=== PATIENT | female | born 1965 | race Caucasian/White ===

== ENCOUNTER 2023-10-05 21:55 | Emergency (ER) | payer MEDICARE, OTHER, SELFPAY ==
[2023-10-05 21:58] VITALS: BP 131/80
[2023-10-05 22:18] LABS: % Basophils 0.7 % (0-2); % Eosinophils 4.5 % (0-6); % Immature Granulocytes 0.8 % (0-0.5); % Lymphocytes 25.3 % (20.5-51.1); % Monocytes 10.9 % (1.7-9.3); % Neutrophils 57.8 % (42.2-75.2); Absolute Basophils 0.1 10^3/uL (0-0.2); Absolute Eosinophils 0.5 10^3/uL (0-0.7); Absolute Immature Granulocytes 0.1 10^3/uL (0-0.05); Absolute Monocytes 1.3 10^3/uL (0.1-0.6); Absolute Neutrophils 6.9 10^3/uL (1.4-6.5); Hematocrit 39.4 % (37.0-47.0); Hemoglobin 13.5 g/dL (12.0-16.0); Mean Corp Hgb Conc. 34.3 g/dL (33.0-37.0); Mean Corpuscular Hgb 32.3 pg (27.0-31.0); Mean Corpuscular Volume 94.3 fL (81.0-99.0); Mean Platelet Volume 11.5 fL (7.4-10.4); Nucleated Red Blood Cells % 0 %; Platelet Count 279 10^3/uL (130-400); Red Blood Cell Count 4.18 10^6/uL (4.20-5.40); Red Cell Dist. Width 13.6 % (11.5-14.5); Urine Albumin Trace (Neg - Trace); Urine Bilirubin Negative (Negative); Urine Character Slightly Cloudy (Clear); Urine Color Yellow; Urine Glucose Negative (Negative); Urine Ketone Trace (Negative); Urine Leukocyte Trace (Negative); Urine Nitrite Negative (Negative); Urine Occult Blood Negative (Negative); Urine Specific Gravity 1.025 (<1.030); Urine Urobilinogen 1+ (Neg - 1+)
[2023-10-05 22:28] LABS: Urine Calcium Oxalate Crystals Present; Urine Mucus Few
[2023-10-05 22:29] LABS: Urine Bacteria Moderate (Negative); Urine Red Blood Cell 0-2 /HPF (0-2); Urine White Cell 0-2 /HPF (0-5)
[2023-10-05 22:37] LABS: ALT (SGPT) 16 U/L (0-35); AST (SGOT) 15 U/L (14-36); Alkaline Phosphatase 81 U/L (38-126); Blood Urea Nitrogen 25 mg/dl (7-17); Calcium 9.4 mg/dl (8.4-10.2); Carbon Dioxide 24 mmol/L (22-30); Chloride 110 mmol/L (98-107); Glucose 115 mg/dl (70-99); Lipase 74 U/L (23-300); Potassium 3.8 mmol/L (3.5-5.1); Sodium 137 mmol/L (135-145); Total Bilirubin 0.3 mg/dl (0.2-1.3); Total Protein 6.4 g/dl (6.3-8.2); eGFR > 60.00
--- NOTE | 2023-10-06 01:51 | ED.GENMED ---
History of Present Illness
<GIOVANA Hung - Last Filed: 10/06/23 05:42>
General
Chief Complaint: Abdominal Pain
Source: patient and family
Exam Limitations: none
Time Seen by Provider: 10/06/23 01:37
Nursing documentation reviewed up to this point in time: agreed with
Travel History
Have you had any contact with someone who has COVID-19?: No
Do you have any symptoms of coronavirus? Fever > 100 degrees, chills, cough, shortness of breath, sore throat, loss of taste or smell, muscle aches, or headache?: No
History of Present Illness
History of Present Illness:
Pt is a 57 year old female with a PMH of intestinal angioedema and CVA, presenting to the ED with her father c/o abdominal pain x 1.5 hours. Pt states she has had multiple episodes of angioedema in the past and they have all felt similar to this.
She states the pain is 8/10 and is a sharp constant pain. Pt also has associated nausea and diarrhea. She has had 4 episodes of non bloody diarrhea, which usually does not accompany her flares of the angioedema. She denies any fever, chills,
vomiting, CP, SOB, dysuria, lightheadedness or dizziness. Pt states she normally gets benadryl and other medications for her flares which usually causes her symptoms to resolve. Pt does not want a CAT scan today because she has had so many in the
past and her 'doctor is worried about the effect's on her organs.'
Pt does not drink alcohol or use drugs. She smokes 1/2 PPD of cigarretes.
Past History
<GIOVANA Hung - Last Filed: 10/06/23 05:42>
Past History
ED Past Medical History: CVA, Psychiatric (Bipolar) and Other (Chronic abdominal pain - intestinal angioedema)
ED Past Surgical History: Appendectomy
Patient has exhibited threatening behavior?: No
Social History
Tobacco: Smoker
Alcohol: None
Drug: None
Personal: Single
Living: with family
Employment: Not employed
Family History
Family History: Negative Hypertension or Early CAD
Review of Systems
<GIOVANA Hung - Last Filed: 10/06/23 05:42>
Review of Systems
Other source history: family
Constitutional: Reports no symptoms; Denies fever or chills
Respiratory: Reports no symptoms; Denies trouble breathing
Cardiac: Reports no symptoms; Denies chest pain
ABD/GI: Reports abdominal pain, nausea and diarrhea; Denies vomiting or constipated
: Reports no symptoms; Denies dysuria
Skin: Reports no symptoms
Neurological: Reports no symptoms; Denies dizzy
Phy Exam
<GIOVANA Hung - Last Filed: 10/06/23 05:42>
General Physical Exam
General Presentation: moderate distress
General age: appears older than age
General Skin: warm and dry
General Habitus: normal
General Mental: alert
General Hydration: appears well hydrated
Cardiovascular Exam
Cardiovascular Exam: regular rate/rhythm, no edema and no murmur
Heart Sounds: normal
Pulmonary Exam
Pulmonary Exam: lungs clear, no respiratory distress, no rales, no crackles, no wheezing and no cough
Oxygen Status: room air
Cough: no cough
Gastrointestinal Exam
Gastrointestinal Exam: soft, abnormal bowel sounds (hyperactive) and tender (left sided)
Palpation: left upper quadrant: Moderate tenderness and left lower quadrant: Moderate tenderness
Auscultation of Abdomen: hyperactive
Neurological Exam
Neurological Exam: alert and oriented x3
Musculoskeletal Exam
Musculoskeletal Exam: no edema and neuro vasc intact
Skin Exam
Skin Exam: normal color and warm/dry
Psychiatric Exam
Psychiatric Exam: normal mood/affect
Course
<GIOVANA Hung - Last Filed: 10/06/23 05:42>
Orders/Labs/Results
Orders:
Orders
10/05/23 22:11
Complete Blood Count/With Diff Urgent
Comprehensive Metabolic Panel Urgent
Lipase Urgent
Urine Culture Reflexed from UA [Urinalysis Reflex To Culture] Urgent
Date Specimen was Collected: 10/05/23
Time Specimen was Collected: 22:03
Urine Microscopic Reflex Cult Urgent
Urine Culture Urgent
SANTIAGO Source: U
Specimen Description:
Date Specimen was Collected: 10/05/23
Time Specimen was Collected: 22:03
10/06/23 02:21
0.9% Sodium Chloride 1000 ml [Nss] 1,000 ml IV BOLUS
Diphenhydramine [Benadryl] 25 mg IV NOW STA
Famotidine [Pepcid] 20 mg IV NOW STA
HYDROmorphone [Dilaudid] 0.5 mg IV NOW STA
Metoclopramide [Reglan] 10 mg IV NOW STA
Abnormal Lab Results
10/05/23
22:11
WBC 12.0 H 10^3/uL
(4.8-10.8)
RBC 4.18 L 10^6/uL
(4.20-5.40)
MCH 32.3 H pg
(27.0-31.0)
MPV 11.5 H fL
(7.4-10.4)
Abs Immat Gran (auto) 0.1 H 10^3/uL
(0-0.05)
Absolute Neuts (auto) 6.9 H 10^3/uL
(1.4-6.5)
Absolute Monos (auto) 1.3 H 10^3/uL
(0.1-0.6)
Immature Gran % 0.8 H %
(0-0.5)
Monocytes % 10.9 H %
(1.7-9.3)
Chloride 110 H mmol/L
(98-107)
BUN 25 H mg/dl
(7-17)
Glucose 115 H mg/dl
(70-99)
Urine Ketones Trace A
(Negative)
Leukocyte Esterase Rfl Trace A
(Negative)
Urine Bacteria (Reflex) Moderate A
(Negative)
10/05/23 22:11
10/05/23 22:11
Vital Signs
Initial and Last Documented VS:
Initial Vital Signs
Temp Pulse Resp BP Pulse Ox
98.9 F 86 20 131/80 97
10/05/23 21:58 10/05/23 21:58 10/05/23 21:58 10/05/23 21:58 10/05/23 21:58
Last Documented Vital Signs
Temp Pulse Resp BP Pulse Ox
98.9 F 76 18 118/76 96
10/05/23 21:58 10/06/23 05:02 10/06/23 05:02 10/06/23 05:02 10/06/23 05:02
<Wilma Ramirez, DO - Last Filed: 10/06/23 05:12>
Orders/Labs/Results
Orders:
Orders
10/05/23 22:11
Complete Blood Count/With Diff Urgent
Comprehensive Metabolic Panel Urgent
Lipase Urgent
Urine Culture Reflexed from UA [Urinalysis Reflex To Culture] Urgent
Date Specimen was Collected: 10/05/23
Time Specimen was Collected: 22:03
Urine Microscopic Reflex Cult Urgent
Urine Culture Urgent
SANTIAGO Source: U
Specimen Description:
Date Specimen was Collected: 10/05/23
Time Specimen was Collected: 22:03
10/06/23 02:21
0.9% Sodium Chloride 1000 ml [Nss] 1,000 ml IV BOLUS
Diphenhydramine [Benadryl] 25 mg IV NOW STA
Famotidine [Pepcid] 20 mg IV NOW STA
HYDROmorphone [Dilaudid] 0.5 mg IV NOW STA
Metoclopramide [Reglan] 10 mg IV NOW STA
Abnormal Lab Results
10/05/23
22:11
WBC 12.0 H 10^3/uL
(4.8-10.8)
RBC 4.18 L 10^6/uL
(4.20-5.40)
MCH 32.3 H pg
(27.0-31.0)
MPV 11.5 H fL
(7.4-10.4)
Abs Immat Gran (auto) 0.1 H 10^3/uL
(0-0.05)
Absolute Neuts (auto) 6.9 H 10^3/uL
(1.4-6.5)
Absolute Monos (auto) 1.3 H 10^3/uL
(0.1-0.6)
Immature Gran % 0.8 H %
(0-0.5)
Monocytes % 10.9 H %
(1.7-9.3)
Chloride 110 H mmol/L
(98-107)
BUN 25 H mg/dl
(7-17)
Glucose 115 H mg/dl
(70-99)
Urine Ketones Trace A
(Negative)
Leukocyte Esterase Rfl Trace A
(Negative)
Urine Bacteria (Reflex) Moderate A
(Negative)
10/05/23 22:11
10/05/23 22:11
Vital Signs
Initial and Last Documented VS:
Initial Vital Signs
Temp Pulse Resp BP Pulse Ox
98.9 F 86 20 131/80 97
10/05/23 21:58 10/05/23 21:58 10/05/23 21:58 10/05/23 21:58 10/05/23 21:58
Last Documented Vital Signs
Temp Pulse Resp BP Pulse Ox
98.9 F 76 18 118/76 96
10/05/23 21:58 10/06/23 05:02 10/06/23 05:02 10/06/23 05:02 10/06/23 05:02
<Wilma Ramirez DO - Last Filed: 10/06/23 05:12>
*Pulse Oximetry
Patient hypoxic: no
*Critical Care Note
Total Time (30-74mins, 75-104mins- exclusive of procedures): Not Applicable
ED Attending Note
<GIOVANA Hung - Last Filed: 10/06/23 05:42>
-
Portions of this chart may have been created with voice recognition software.� Occasional wrong word or��sound alike� substitutions may have occurred due to the inherent limitations of voice recognition software.
<Wilma Ramirez DO - Last Filed: 10/06/23 05:12>
ED Attending Note
Patient seen and examined by attending physician: Yes
I performed the substantive portion of visit, reviewed & personally made and approve the management plan that is documented in note by myself or MICHAEL.: Yes
I performed a history and physical exam of patient and discussed management with resident, I reviewed resident's note and agree with documented findings and plan of care.: Yes
ED Attending Note:
This is a 57-year-old woman who has history of factor V Leyden deficiency, history of stroke, chronically maintained on Eliquis. She also has history of intestinal angioedema with intermittent episodes of primarily left-sided abdominal pain
accompanied with nausea, vomiting, generally resolves with IV Reglan, Benadryl, Pepcid and Dilaudid. She follows with GI at [facility] and has had multiple ED visits over a number of years for similar complaints.
She does note marked decreased episodes of intestinal angioedema since suffering stroke 4 years ago.
Her last episodes with similar complaints she was evaluated in this ED May 2022 and then again in January 2023.
In May [address] which showed mild descending colon inflammation consistent with colitis and treated with short course of antibiotic. Previous CAT scans at [facility] were all unremarkable.
Patient complains of her typical left-sided abdominal pain that began this evening accompanied with nausea, dry heaves and 4 episodes of nonbloody diarrhea. She does admit that diarrhea is generally not accompanied with her angioedema flares.
She has not had a fever nor chills. No close contacts with similar symptoms. No recent travel nor recent antibiotic use.
She is chronically maintained on Benadryl 25 mg daily as well as Zyrtec daily which have been helpful in reducing her intestinal angioedema flares.
GENERAL: 57-year-old woman appears somewhat older than stated age, bright and alert, pleasant, appears in no acute distress. Her father is accompanying.
EYE: pupils equal and reactive. anicteric
NECK: Supple, nontender, no meningismus, no significant adenopathy.
ENT: posterior pharynx is clear, oral mucosa is moist. No rhinorrhea.
CARDIAC: Regular rate and rhythm. no murmur.
LUNGS: Clear breath sounds bilaterally, no acute respiratory distress, no wheezes/rales/rhonchi
ABDOMEN: Soft, nondistended, mild to moderate tenderness left lower quadrant, no r/g, no cvat. normoactive BS.
NEUROLOGICAL: Alert and oriented x3, no focal neuro deficits. Gait is steady.
SKIN: Warm and dry, normal color, skin intact. No rash.
MUSCULOSKELETAL: No C/C/E. peripheral pulses are full and equal b/l. No palpable tenderness.
PSYCH: Normal and appropriate interaction.
Concern for recurrent intestinal angioedema, other consideration is acute gastroenteritis, colitis, diverticulitis. Less likely small bowel obstruction.
Thus far labs reveal mildly elevated white blood cell count of 12. Similar elevations noted in the past.
Mild prerenal azotemia with BUN of 25, creatinine 0.9. Chemistries are otherwise unremarkable.
Urinalysis shows specific gravity of 1.025, moderate bacteria but no evidence of UTI with only 0-2 WBCs. Calcium oxalate crystals are present but patient has had no flank pain, no CVA tenderness. Ureteric stone as cause for pain is less likely.
Will trial her usual cocktail of Reglan, Pepcid, Benadryl and a small dose of IV Dilaudid along with IV fluids and continue to observe.
If recurrent diarrhea we will plan to send stool cultures.
If pain persists would recommend CT at that time.
10/06/2023 0511 AM
Patient is pain-free and comfortable and eager to be discharged to home.
Abdomen is soft and nontender.
No diarrhea since arrival to the ED.
Recommend she follow-up with her electro optics engineer at [facility]. Patient requested referral to [facility] which has been provided as well.
Discharge Plan
Departure
Patient Disposition: Home (Routine Discharge)
Date of Disposition: 10/06/23
Time of Disposition: 05:08
Patient with high blood pressure during this ER visit?: No
Condition: Good
Discharge Problem:
Acute exac of intestinal angioedema
Instructions: Clear Liquid Diet, Abdominal Pain
Prescriptions:
No Action
cetirizine 10 MG tablet
10 mg PO DAILY
epinephrine [EpiPen] 0.3 MG/0.3/SYRINGE auto-injector
0.3 mg IM PRN PRN (Reason: intestinal pain)
lurasidone [Latuda] 80 MG tablet
80 mg PO DAILY
famotidine 20 MG tablet
20 mg PO BID
diphenhydramine HCl [Banophen] 25 MG capsule
25 mg PO BID
lamotrigine [Lamictal] 150 MG tablet
225 mg PO HS
alprazolam 1 MG tablet
1 - 3 mg PO Q8HPRN PRN (Reason: anxiety)
apixaban [Eliquis] 5 MG tablet
2.5 mg PO BID Qty: 0 0RF
clopidogrel [Plavix] 75 MG tablet
75 mg PO DAILY Qty: 7 0RF
atorvastatin 40 MG tablet
40 mg PO QPM Qty: 30 0RF
famotidine 20 MG tablet
20 mg PO BID Qty: 14 0RF
metoclopramide HCl 10 MG tablet
10 mg PO BID PRN (Reason: nausea) Qty: 12 0RF
amoxicillin-pot clavulanate 875-125 mg tablet
1 tab PO BID 7 Days Qty: 14 0RF
dicyclomine 20 mg tablet
20 mg PO BID Qty: 7 0RF
Referrals:
Kody Viveros MD [Active] - Call in 1-3 days for appt
Kody Lebron MD [Family Provider] - Call in 1-3 days for appt
Activity Restrictions/Additional Instructions:
Follow-up with your electro optics engineer at [facility] versus follow-up with new electro optics engineer at [facility].
Interventions
Interventions:
*Risk Screen - Suicide Last Done: 10/05/23 21:58
*General Assessment Last Done: 10/05/23 21:58
*Neglect/Abuse Screening Last Done: 10/05/23 21:58
ED- Fall Risk Assessment Last Done: 10/06/23 02:56
*Nursing Disposition Last Done: 10/06/23 05:14
AV-Fxmodk-Jtaodngxzu Assessment Last Done: 10/06/23 02:56
Discharge Date and Time
Discharge Date/Time: 10/06/23 05:15
[2023-10-06] MEDS: PEPCID 20 MG IV (02:51)
[2023-10-06] MEDS: REGLAN 10 MG IV (02:51)
[2023-10-06] MEDS: BENADRYL 25 MG IV (02:51)
[2023-10-06] MEDS: DILAUDID 0.5 MG IV (02:51)
[2023-10-06] MEDS: NSS 1000 IV (02:51)
[2023-10-06 02:55] VITALS: BMI 27.8
[2023-10-06 05:02] VITALS: BP 118/76
== END 2023-10-06 05:15 | disposition home or self-care (01) ==
LOC: EMR 21:55
PROVIDERS: Emergency Medicine; EMERGENCY PHYSICIAN Emergency Medicine; FAMILY PHYSICIAN Internal Medicine
DX: T78.3XXA Angioneurotic edema, initial encounter (principal); F17.210 Nicotine dependence, cigarettes, uncomplicated; Z86.73 Personal history of transient ischemic attack (TIA), and cerebral infarction without residual deficits
CPT/HCPCS: 99284; 96374; 96375 ×3; 96361; 80053; 81003; 81015; 83690; 85025; 87086

== ENCOUNTER 2024-05-04 10:34 | Emergency (ER) | payer MEDICARE, OTHER, SELFPAY ==
[2024-05-04 10:36] VITALS: BP 140/71
--- NOTE | 2024-05-04 11:31 | ED.GENMED ---
History of Present Illness
General
Chief Complaint: Abdominal Pain
Source: patient
Exam Limitations: none
Time Seen by Provider: 05/04/24 11:09
Nursing documentation reviewed up to this point in time: agreed with
History of Present Illness
History of Present Illness:
58 yr old female with past medical history of stroke, intestinal angioedema presents to the ER for evaluation. Father bedside with patient has had chronic issues with intestinal angioedema however ever since her stroke several years ago her
intestinal edema symptoms have improved. She used to go to the ER almost every day sometimes twice a day but now maybe every several months. Patient was last seen here September 2023 for typical complaints of angioedema of intestines. She does
feel that this is her typical pain. Her last CAT scan for this was May 2022 here at [facility] which showed possible colitis. During previous several visits patient has not had a CAT scan (09/2023 and 01/2023).
Pt reports typically this pain will start the need to have a bowel movement and she did wake up at 2 AM feeling that she had to move her bowels and pain started. She was nauseous and vomited them and is not nauseous now. She does report she had an
episode of bright red blood at the time. Is on Eliquis.
Past History
Past History
ED Past Medical History: CVA, Psychiatric (Bipolar) and Other (Chronic abdominal pain - intestinal angioedema)
ED Past Surgical History: Appendectomy
Patient has exhibited threatening behavior?: No
Social History
Tobacco: Smoker
Alcohol: None
Drug: None
Personal: Single
Living: with family
Employment: Not employed
Family History
Family History: Negative Hypertension or Early CAD
Review of Systems
Review of Systems
Allergies reviewed?: Yes
Other source history: family
All Other Systems: ROS reviewed and negative except as documented in HPI and ROS
Constitutional: Reports no symptoms; Denies fever, fatigue or chills
Respiratory: Reports no symptoms
Cardiac: Reports no symptoms
ABD/GI: Reports abdominal pain, nausea, vomiting and other (Bright red blood x 1 per rectum)
: Reports no symptoms; Denies dysuria, incontinence or urgency
Musculoskeletal: Reports no symptoms
Skin: Reports no symptoms
Neurological: Reports no symptoms
Psychiatric: Reports no symptoms
Phy Exam
General Physical Exam
General Presentation: no apparent distress
General age: appears stated age
General Skin: warm and dry
General Habitus: normal
General Mental: alert
General Hydration: appears well hydrated
Gastrointestinal Exam
Gastrointestinal Exam: soft and other (tender left side of abdomen ; rectal exam small mount of brown stool heme-negative small external hemorrhoid)
Neurological Exam
Neurological Exam: alert and oriented x3
Musculoskeletal Exam
Musculoskeletal Exam: full ROM
Skin Exam
Skin Exam: normal color and warm/dry
Course
Orders/Labs/Results
Orders:
Orders
05/04/24 11:45
CT Abd/Pel (IV only)-DH only Urgent
Comment:
Reason For Exam: abd pain(hx of intestinal angioedema
05/04/24 11:46
IV Insert/Care/Rem.- Treatment PRN
0.9% Sodium Chloride 1000 ml [Nss] 1,000 ml IV BOLUS
Diphenhydramine [Benadryl] 25 mg IV NOW STA
Metoclopramide [Reglan] 10 mg IV NOW STA
05/04/24 11:47
HYDROmorphone [Dilaudid] 1 mg IV NOW STA
05/04/24 12:05
Complete Blood Count/With Diff Urgent
05/04/24 12:38
Urinalysis Reflex To Culture Urgent
Date Specimen was Collected: 05/04/24
Time Specimen was Collected: 12:27
05/04/24 13:27
Comprehensive Metabolic Panel Urgent
Lipase Urgent
Abnormal Lab Results
05/04/24 05/04/24
12:05 13:27
WBC 15.0 H 10^3/uL
(4.8-10.8)
MCH 31.3 H pg
(27.0-31.0)
MPV 12.0 H fL
(7.4-10.4)
Abs Immat Gran (auto) 0.1 H 10^3/uL
(0-0.05)
Absolute Neuts (auto) 10.5 H 10^3/uL
(1.4-6.5)
Absolute Monos (auto) 1.4 H 10^3/uL
(0.1-0.6)
Lymphocytes % 17.9 L %
(20.5-51.1)
Chloride 112 H mmol/L
(98-107)
Carbon Dioxide 21 L mmol/L
(22-30)
BUN 20 H mg/dl
(7-17)
Total Protein 5.7 L g/dl
(6.3-8.2)
05/04/24 12:05
05/04/24 13:27
Vital Signs
Initial and Last Documented VS:
Initial Vital Signs
Temp Pulse Resp BP Pulse Ox
97.9 F 84 16 140/71 98
05/04/24 10:36 05/04/24 10:36 05/04/24 10:36 05/04/24 10:36 05/04/24 10:36
Last Documented Vital Signs
Temp Pulse Resp BP Pulse Ox
97.9 F 66 12 111/58 98
05/04/24 10:36 05/04/24 14:00 05/04/24 14:00 05/04/24 14:00 05/04/24 10:36
Mma Fighter consulted with Physician
Mma Fighter consulted with physician?: Yes
Name of Physician Consulted: maverick
MDM/Problems Addressed
MDM/Problems Addressed:
As documented patient is a 58-year-old female with history of intestinal angioedema. She presented with symptoms consistent with previous episodes of intestinal angioedema in the past. On exam she is nontoxic very minimal tenderness to the left
abdomen. She denies any fevers. She did vomit this morning when symptoms occur. She reports 1 episode of bright red blood at times in her stool however on exam she has a very small hemorrhoid stool is brown in color heme-negative hemoglobin is
stable.
Patient no acute distress as documented afebrile no other infectious symptoms denies any UTI symptoms. White count minimally elevated, urinalysis negative all other labs are normal. CAT scan unremarkable patient was given fluids nausea medicine
and pain medication feeling better.
Patient feels well enough to go home no episodes of stool here no episodes of vomiting here. Case reviewed ED physician will plan to discharge home.
*Critical Care Note
Total Time (30-74mins, 75-104mins- exclusive of procedures): Not Applicable
ED Attending Note
-
Portions of this chart may have been created with voice recognition software.� Occasional wrong word or��sound alike� substitutions may have occurred due to the inherent limitations of voice recognition software.
Discharge Plan
Departure
Patient Disposition: Home (Routine Discharge)
Date of Disposition: 05/04/24
Time of Disposition: 15:19
Patient with high blood pressure during this ER visit?: Yes
Condition: Fair
Covid-19: Not Applicable
Discharge Problem:
Abdominal pain
Instructions: Abdominal Pain, BLOOD PRESSURE
Prescriptions:
No Action
cetirizine 10 MG tablet
10 mg PO DAILY
epinephrine [EpiPen] 0.3 MG/0.3/SYRINGE auto-injector
0.3 mg IM PRN PRN (Reason: intestinal pain)
lurasidone [Latuda] 80 MG tablet
80 mg PO DAILY
famotidine 20 MG tablet
20 mg PO BID
diphenhydramine HCl [Banophen] 25 MG capsule
25 mg PO BID
lamotrigine [Lamictal] 150 MG tablet
225 mg PO HS
alprazolam 1 MG tablet
1 - 3 mg PO Q8HPRN PRN (Reason: anxiety)
apixaban [Eliquis] 5 MG tablet
2.5 mg PO BID Qty: 0 0RF
clopidogrel [Plavix] 75 MG tablet
75 mg PO DAILY Qty: 7 0RF
atorvastatin 40 MG tablet
40 mg PO QPM Qty: 30 0RF
famotidine 20 MG tablet
20 mg PO BID Qty: 14 0RF
metoclopramide HCl 10 MG tablet
10 mg PO BID PRN (Reason: nausea) Qty: 12 0RF
amoxicillin-pot clavulanate 875-125 mg tablet
1 tab PO BID 7 Days Qty: 14 0RF
dicyclomine 20 mg tablet
20 mg PO BID Qty: 7 0RF
Referrals:
Kody Lebron MD [Family Provider] -
Activity Restrictions/Additional Instructions:
As discussed bland diet for the next several days .follow-up with your family doctor in the next 2-3 days and return if any worsening of symptoms
Interventions
Interventions:
*Risk Screen - Suicide Last Done: 05/04/24 10:36
*General Assessment Last Done: 05/04/24 10:36
*Neglect/Abuse Screening Last Done: 05/04/24 10:36
ED- Fall Risk Assessment Last Done: 05/04/24 14:02
*ED COVID-19 Vaccine History Last Done: 05/04/24 14:01
AZ-Zffqkv-Stfiizhbda Assessment Last Done: 05/04/24 13:14
Discharge Date and Time
Print Language: CROATIAN
[2024-05-04 12:22] VITALS: BP 139/74
[2024-05-04 12:24] VITALS: BMI 26.4
[2024-05-04] MEDS: NSS 1000 IV (12:39)
[2024-05-04] MEDS: DILAUDID 1 MG IV (12:39)
[2024-05-04] MEDS: REGLAN 10 MG IV (12:40)
[2024-05-04] MEDS: BENADRYL 25 MG IV (12:41)
[2024-05-04 12:56] LABS: % Basophils 0.7 % (0-2); % Eosinophils 1.9 % (0-6); % Immature Granulocytes 0.5 % (0-0.5); % Lymphocytes 17.9 % (20.5-51.1); % Monocytes 9.3 % (1.7-9.3); % Neutrophils 69.7 % (42.2-75.2); Absolute Basophils 0.1 10^3/uL (0-0.2); Absolute Eosinophils 0.3 10^3/uL (0-0.7); Absolute Immature Granulocytes 0.1 10^3/uL (0-0.05); Absolute Lymphocytes 2.7 10^3/uL (1.2-3.4); Absolute Monocytes 1.4 10^3/uL (0.1-0.6); Absolute Neutrophils 10.5 10^3/uL (1.4-6.5); Hematocrit 41.6 % (37.0-47.0); Mean Corp Hgb Conc. 33.7 g/dL (33.0-37.0); Mean Corpuscular Hgb 31.3 pg (27.0-31.0); Mean Corpuscular Volume 92.9 fL (81.0-99.0); Nucleated Red Blood Cells % 0 %; Platelet Count 239 10^3/uL (130-400); Red Blood Cell Count 4.48 10^6/uL (4.20-5.40); Red Cell Dist. Width 14.1 % (11.5-14.5)
[2024-05-04 12:57] LABS: Urine Albumin Negative (Neg - Trace); Urine Bilirubin Negative (Negative); Urine Character Clear (Clear); Urine Color Yellow; Urine Glucose Negative (Negative); Urine Ketone Negative (Negative); Urine Leukocyte Negative (Negative); Urine Nitrite Negative (Negative); Urine Occult Blood Negative (Negative); Urine Specific Gravity 1.015 (<1.030); Urine Urobilinogen Negative (Neg - 1+); Urine pH 6.5 (5.0-9.0)
[2024-05-04 13:00] VITALS: BP 122/70
[2024-05-04 14:00] VITALS: BP 111/58
[2024-05-04 14:08] LABS: ALT (SGPT) 12 U/L (0-35); AST (SGOT) 19 U/L (14-36); Albumin 3.5 g/dl (3.5-5.0); Alkaline Phosphatase 53 U/L (38-126); Blood Urea Nitrogen 20 mg/dl (7-17); Calcium 9.1 mg/dl (8.4-10.2); Carbon Dioxide 21 mmol/L (22-30); Estimated Creatinine Clearance 73 ml/min; Glucose 86 mg/dl (70-99); Lipase 82 U/L (23-300); Potassium 4.4 mmol/L (3.5-5.1); Sodium 141 mmol/L (135-145); Total Bilirubin 0.4 mg/dl (0.2-1.3); Total Protein 5.7 g/dl (6.3-8.2); eGFR > 60.00
[2024-05-04 14:33] LABS: Chloride 112 mmol/L (98-107)
[2024-05-04 16:14] VITALS: BP 116/60
== END 2024-05-04 16:15 | disposition home or self-care (01) ==
LOC: EMR 10:34
PROVIDERS: Nurse Practitioner; EMERGENCY PHYSICIAN Student in an Organized Health Care Education/Training Program; FAMILY PHYSICIAN Internal Medicine
DX: R10.32 Left lower quadrant pain (principal); R11.2 Nausea with vomiting, unspecified; K92.1 Melena; R03.0 Elevated blood-pressure reading, without diagnosis of hypertension; T78.3XXA Angioneurotic edema, initial encounter; F31.9 Bipolar disorder, unspecified; G89.29 Other chronic pain; F17.200 Nicotine dependence, unspecified, uncomplicated; Z86.73 Personal history of transient ischemic attack (TIA), and cerebral infarction without residual deficits; Z79.01 Long term (current) use of anticoagulants; Z88.8 Allergy status to other drugs, medicaments and biological substances
CPT/HCPCS: 99285; 96375 ×2; 96361; 96374; 74177; 80053; 81003; 83690; 85025; Q9967